=== PATIENT | female | born 1975 | race Caucasian/White ===

== ENCOUNTER 2021-09-08 12:03 | Outpatient (CLI) | payer OTHER ==
--- NOTE | 2021-09-09 07:14 | XRAY Report ---
PROCEDURE: Finger(s) LT INDICATIONS: CONTUSION OF L LITTLE FINGER TECHNIQUE: AP hand, 2 views of the 5th finger(s) acquired. COMPARISON: FINDINGS: Bones: There is a lucency at the base of the fifth distal phalanx, suspicious for nondisplaced fract ure. No dislocations. No suspicious bony lesions. Soft tissues: No suspicious soft tissue calcifications. Soft tissue swelling of the fifth finger. IMPRESSION: Suspect a nondisplaced fracture at the base of the fifth phalanx. Reviewed by: Quoc Mujica MD on 09/09/2021 7:12 AM PDT Approved by: Quoc Mujica MD on 09/09/2021 7:12 AM PDT Station ID: [id number]
== END 2021-09-08 23:59 | disposition home or self-care (01) ==
LOC: EDBD → DI.N 12:03
PROVIDERS: ATTEND Family Medicine
DX: S60.052A Contusion of left little finger without damage to nail, initial encounter (principal)